=== PATIENT | female | born 1975 | race Caucasian/White ===

== ENCOUNTER → 2018-10-11 18:35 | Outpatient (CLI) | payer MEDICAID, SELFPAY ==
[2018-10-11 19:55] LABS: Anion Gap 10.3 mEq/L (5-15); Blood Urea Nitrogen 13 mg/dL (7-18); Calcium 8.2 mg/dL (8.5-10.1); Carbon Dioxide 31 mmol/L (21.0-32.0); Chloride 105 mmol/L (98-107); Creatinine,Serum 0.93 mg/dL (0.55-1.02); Estimated Glomerular Filt Rate 65 ml/min (>60); GFR (African American) 79 ML/MIN (>60); Glucose 89 mg/dL (74-106); Potassium 4.3 mmoL/L (3.5-5.1); Sodium 142 mmol/L (136-145)
[2018-10-11 20:18] LABS: Carbamazepine (Tegretol) 16.1 ug/ml (4.0-12.0)
== END ==
PROVIDERS: Visit Provider Emergency Medicine
DX: F32.9 Major depressive disorder, single episode, unspecified (principal); I10 Essential (primary) hypertension
CPT/HCPCS: 80048; 80156

== ENCOUNTER 2021-10-31 13:34 | Emergency (ER) | payer MEDICAID, SELFPAY ==
[2021-10-31 14:15] VITALS: BP 131/97; PULSE 76; RESP 18; TEMP 36.8; O2SAT 99; BMI 22.6
[2021-10-31 14:59] VITALS: BP 131/97; PULSE 76; RESP 18; TEMP 36.8; O2SAT 99
--- NOTE | 2021-10-31 15:03 | HMH.EDUTC ---
[facility] [place] Disposition Clinical Impression: Tonsillitis Disposition: Home, Self-Care Condition on Discharge: Good Instructions: DI for Pharyngitis/Tonsillopharyngitis -- Adult Additional Instructions: Strep negative. You have been tested for COVID19. Please isolate yourself as if you are positive until test results return. Referrals: Nathaly Waters [Primary Care Provider] - Time of Disposition: 15:15 Medical Decision Making - Jeff Inquiry Pt receiving controlled substance: No Vital Signs: 10/31/21 14:15 10/31/21 14:59 Temperature 98.2 F 98.2 F Temperature Source Oral Pulse Rate 76 Pulse Rate [Left Brachial] 76 Respiratory Rate 18 18 Blood Pressure 131/97 H Blood Pressure [Left Arm] 131/97 H Blood Pressure Mean [Left Arm] 108 Blood Pressure Source [Left Arm] Automatic Cuff Blood Pressure Position [Left Arm] Sitting 02 Sat by Pulse Oximetry 99 Oxygen Delivery Method Room Air - Lab Data Lab results reviewed: Yes: I reviewed the patient's lab results. Lab Results 10/31/21 14:20: Group A Strep Rapid Negative Orders (Tests/Meds): ORDERS Category Date Time Status Covid-19 Nasal PCR ([facility]) Routine Lab 10/31/21 15:07 Ordered Strep Screen Confirmation Stat Micro 10/31/21 14:20 Received [facility] [place] HPI - General Stated complaint: sore throat, h/a Time Seen by Provider: 10/31/21 15:03 Mode of Arrival: Ambulatory Source of Information: Patient Limitations: No Limitations Description of Symptoms (Recalled from Triage Doc. by RN): PATIENT C/O PROBLEMS WITH SWALLOWING, NECK SORENESS, AND MIGRAINE X 3 DAYS HEENT Symptoms (Recalled from RN notes): Yes Resp Symptoms (Recalled from RN notes): No Skin Symptoms (Recalled from RN notes): No MS Symptoms (Recalled from RN notes): No Functional Status (Recalled from RN notes): WNL - History of Present Illness Provider Complaint: Migraine X 3 days. No fever. Sore throat started last night. Hurts to swallow. Hurts to touch. Some shortness of breath when she lies flat. H/O COPD. No vomiting. Had diarrhea earlier in the week, now resolved. Onset (ago): day(s) (3) Location: head Relieving factors: none Exacerbating factors: none Associated symptoms: cough, weakness Treatments prior to arrival: NSAID - Related Data Home Medications Medication Instructions Recorded Confirmed albuterol sulfate 90 mcg/actuation 2 puff INHALATION Q6H PRN 10/11/18 07/06/21 aerosol inhaler atorvastatin 40 mg tablet 40 mg PO QHS 10/11/18 07/06/21 clonidine HCl 0.2 mg tablet 0.2 mg PO BID 10/11/18 07/06/21 diclofenac sodium 1 % topical gel 2 g TOPICAL QID 10/11/18 07/06/21 dicyclomine 20 mg tablet 10 mg PO QID tab 10/11/18 07/06/21 epinephrine 0.3 mg/0.3 mL 0.3 mg IM Q10-15M PRN 10/11/18 07/06/21 injection, auto-injector furosemide 20 mg tablet 20 mg PO DAILY 10/11/18 07/06/21 gabapentin 800 mg tablet 800 mg PO TID 10/11/18 07/06/21 hydrocodone 10 mg-acetaminophen 1 tab PO Q6H PRN 10/11/18 07/06/21 325 mg tablet ipratropium 0.5 mg-albuterol 3 mg 3 ml INHALATION Q12H ml 10/11/18 07/06/21 (2.5 mg base)/3 mL nebulization soln levothyroxine 100 mcg capsule 100 mcg PO DAILY 10/11/18 07/06/21 levothyroxine 88 mcg capsule 88 mcg PO DAILY 10/11/18 07/06/21 lubiprostone 24 mcg capsule 24 mcg PO BID 10/11/18 07/06/21 omeprazole 20 mg capsule,delayed 40 mg PO DAILY cap 10/11/18 07/06/21 release polyethylene glycol 3350 17 gram 17 g PO DAILY 10/11/18 07/06/21 oral powder packet umeclidinium 62.5 mcg/actuation 1 inh INHALATION DAILY 10/11/18 07/06/21 blister powder for inhalation verapamil 80 mg tablet 80 mg PO TID 10/11/18 07/06/21 warfarin 5 mg tablet 5 mg PO DAILY 10/11/18 07/06/21 carbamazepine 200 mg tablet 400 mg PO BID tab 10/17/18 07/06/21 Previous Rx's Medication Instructions Recorded alprazolam 1 mg tablet 1 mg PO BID PRN #60 tab 10/01/21 trazodone 100 mg tablet 100 mg PO .COMPLEX PRN #60 tab 10/01/21 vilazodone 40 mg tablet 40 mg PO
[2021-10-31 15:09] LABS: Strep Scrn Group A (Rapid) Negative (Negative)
== END 2021-10-31 15:39 | disposition home or self-care (01) ==
PROVIDERS: Emergency Provider Physician Assistant; PCP Family Medicine
DX: J03.90 Acute tonsillitis, unspecified (principal); Z72.0 Tobacco use; R07.0 Pain in throat; R68.83 Chills (without fever); R06.02 Shortness of breath; J44.9 Chronic obstructive pulmonary disease, unspecified; R05.9 Cough, unspecified; R53.1 Weakness; F41.9 Anxiety disorder, unspecified; Z86.73 Personal history of transient ischemic attack (TIA), and cerebral infarction without residual deficits; F32.A Depression, unspecified; K21.9 Gastro-esophageal reflux disease without esophagitis; R56.9 Unspecified convulsions; E03.9 Hypothyroidism, unspecified; M79.10 Myalgia, unspecified site; G43.909 Migraine, unspecified, not intractable, without status migrainosus
CPT/HCPCS: 87430; 99212; C9803; G0463; U0003; U0005

== ENCOUNTER → 2022-12-08 21:20 | Outpatient (CLI) | payer MEDICAID, SELFPAY ==
[2022-12-08 18:42] LABS: Amphetamine/Metha Screen,Urine Negative ng/ml (<1000); Barbiturates Screen,Urine Negative ng/ml (<200)
[2022-12-08 18:43] LABS: Benzodiazepines Screen,Urine Positive ng/ml (<200); Cannabinoid Screen,Urine Positive ng/ml (<50)
[2022-12-08 18:45] LABS: Cocaine Screen,Urine Negative ng/ml (<300); Methadone Screen,Urine Negative ng/ml (<300)
[2022-12-08 18:46] LABS: Opiate Screen,Urine Negative ng/ml (<300)
[2022-12-08 18:47] LABS: Phencyclidine Screen,Urine Negative ng/ml (<25)
== END ==
PROVIDERS: PCP Family Medicine; Visit Provider Nurse Practitioner Psychiatric/Mental Health
DX: F15.20 Other stimulant dependence, uncomplicated (principal); F41.9 Anxiety disorder, unspecified; Z79.899 Other long term (current) drug therapy
CPT/HCPCS: 80305

== ENCOUNTER 2023-03-29 15:39 | Emergency (ER) | payer MEDICAID, SELFPAY ==
[2023-03-29 15:41] VITALS: BP 115/72; PULSE 86; RESP 19; TEMP 36.8; O2SAT 99; BMI 20.3
--- NOTE | 2023-03-29 15:54 | CT_ITS ---
PROCEDURE INFORMATION: Exam: CT Abdomen And Pelvis With Contrast Exam date and time: 03/29/2023 4:54 PM Age: 47 years old Clinical indication: Abdominal pain; Additional info: Lower abd pain vag bld; H/o partial hysterectomy TECHNIQUE: Imaging protocol: Computed tomography of the abdomen and pelvis with contrast. Radiation optimization: All CT scans at this facility use at least one of these dose optimization techniques: automated exposure control; mA and/or kV adjustment per patient size (includes targeted exams where dose is matched to clinical indication); or iterative reconstruction. Contrast material: ISOVUE; Contrast volume: 75 ml; Contrast route: IV; REPORTING DATA: Count of CT and Cardiac NM exams in prior 12 months: This patient has received 0 known CTs and 0 known cardiac nuclear medicine studies in the 12 months prior to the current study. COMPARISON: No relevant prior studies available. FINDINGS: Tubes, catheters and devices: None noted. Lungs: Lung bases appear clear. Heart: No significant coronary calcifications. No cardiomegaly. No significant pericardial effusion. Liver: Right lobe hemangioma. No mass. Gallbladder and bile ducts: Normal. No calcified stones. No ductal dilation. Pancreas: Normal. No ductal dilation. Spleen: Normal. No splenomegaly. Adrenal glands: Normal. No mass. Kidneys and ureters: Normal. No hydronephrosis. Stomach and bowel: Unremarkable. No obstruction. No mucosal thickening. Appendix: No evidence of appendicitis. Intraperitoneal space: Unremarkable. No free air. No significant fluid collection. Retroperitoneal space: No significant retroperitoneal inflammatory changes are noted. Vasculature: IVC filter in place. Consider plan for retrieval. No abdominal aortic aneurysm. Lymph nodes: Unremarkable. No enlarged lymph nodes. Urinary bladder: Unremarkable as visualized. Reproductive: Hysterectomy. Bones/joints: Unremarkable. No acute fracture. Soft tissues: Unremarkable. IMPRESSION: 1. IVC filter in place. Consider plan for retrieval. 2. Hysterectomy. COMMENTS: For patients with an IVC filter, recommend assessment for a management plan for the patient's IVC filter. If there is no established management plan, recommend referral to an interventional clinician on a nonemergent basis for evaluation.
--- NOTE | 2023-03-29 15:55 | HMH.EDGENADL ---
Discharge Plan Disposition Patient Disposition: Home, Self-Care Prescriptions Prescriptions: No Action albuterol sulfate 90 mcg/actuation HFA aerosol inhaler 2 puff INHALATION Q6H PRN ipratropium-albuterol 0.5 mg-3 mg(2.5 mg base)/3 mL solution for nebulization 3 ml INHALATION Q12H atorvastatin 40 mg tablet 40 mg PO QHS clonidine HCl 0.2 mg tablet 0.2 mg PO BID diclofenac sodium 1 % gel 2 g TOPICAL QID dicyclomine 20 mg tablet 10 mg PO QID epinephrine [EpiPen] 0.3 mg/0.3 mL auto-injector 0.3 mg IM Q10-15M PRN furosemide 20 mg tablet 20 mg PO DAILY gabapentin 800 mg tablet 800 mg PO TID Incruse Ellipta 62.5 mcg/actuation blister with device 1 inh INHALATION DAILY levothyroxine 88 mcg capsule 88 mcg PO DAILY levothyroxine 100 mcg capsule 100 mcg PO DAILY Rx Instructions: take m,w,f, and sun lubiprostone 24 mcg capsule 24 mcg PO BID omeprazole 20 mg capsule,delayed release(DR/EC) 40 mg PO DAILY polyethylene glycol 3350 17 gram powder in packet 17 g PO DAILY verapamil 80 mg tablet 80 mg PO TID warfarin 5 mg tablet 5 mg PO DAILY hydrocodone-acetaminophen [[place]] 10-325 mg tablet 1 tab PO Q6H PRN alprazolam [Xanax] 1 mg tablet 1 mg PO BID PRN (Reason: anxiety) Qty: 60 1RF benztropine 1 mg tablet 1 mg PO QHS Qty: 30 1RF lamotrigine [Lamictal] 100 mg tablet 100 mg PO BID Qty: 60 1RF quetiapine [Seroquel] 400 mg tablet 400 mg PO QHS Qty: 90 1RF trazodone 100 mg tablet 100 mg PO .COMPLEX PRN (Reason: sleep) Qty: 60 0RF Rx Instructions: 100 mg PO take 1-2 tablets at bedtime PRN; vilazodone [Viibryd] 40 mg tablet 40 mg PO DAILY Qty: 30 1RF Rx Instructions: must administer with a meal/food carbamazepine 200 mg tablet 400 mg PO BID Referrals Follow up/Referrals: Nathaly Patel MD [Primary Care Provider] - See instructions Activity Restrictions/Add. Instructions Additional Instructions/Restrictions: Her symptoms are consistent with pelvic organ prolapse. Please follow-up with the [facility] [employer] doctor that you have been referred to to discuss nonsurgical and surgical management and options. Also follow-up with your primary care doctor to further discuss your subtherapeutic INR and chronic anticoagulation. Clinical Impressions Clinical Impression: Prolapse of female pelvic organs, Subtherapeutic international normalized ratio (INR) Instructions Patient Instructions: DI for Acute Abdominal Pain Discharge ED Provider: Alesia Doyle General Adult HPI General Chief complaint: Abdominal Pain Stated complaint: abdonimal pain Time Seen by Provider: 03/29/23 15:43 History of Present Illness HPI narrative: Patient is a 47-year-old female with a history of a stroke chronically anticoagulated on Coumadin also with a history of partial hysterectomy only still having her right ovary presenting today with lower abdominal discomfort significant pressure into her vagina as well as some vaginal bleeding. Denies any significant bleeding states that the majority of her discomfort is when she stands up or when she exerts herself as she feels significant pressure in her vaginal area itself. She has no history of bladder prolapse or cervical prolapse. However she states she has mid abdominal pain as well. No other symptoms including diarrhea constipation etc. Or chills. Related Data Home Medications Medication Instructions Recorded Confirmed albuterol sulfate 90 mcg/actuation 2 puff inhalation Q6H PRN 10/11/18 01/06/23 aerosol inhaler atorvastatin 40 mg tablet 40 mg PO QHS 10/11/18 01/06/23 clonidine HCl 0.2 mg tablet 0.2 mg PO BID 10/11/18 01/06/23 diclofenac sodium 1 % topical gel 2 g topical QID 10/11/18 01/06/23 dicyclomine 20 mg tablet 10 mg PO QID 10/11/18 01/06/23 epinephrine 0.3 mg/0.3 mL 0.3 mg IM Q10-15M PRN 10/11/18 01/06/23 injection, auto-in
[2023-03-29 16:25] LABS: Basophils % 0.4 % (0.1-2.0); Eosinophils # 0.1 K/mm3 (0.0-0.4); Eosinophils % 1.3 % (0.1-12.0); Hematocrit 37.1 % (37.0-47.0); Hemoglobin 12.2 g/dL (12.2-16.2); Lymphocytes # 1.7 K/mm3 (0.7-4.5); Mean Corpuscular HGB Conc 32.9 g/dL (31.8-35.4); Mean Corpuscular Hemoglobin 31.6 pg (27.0-31.2); Mean Corpuscular Volume 96.1 fl (81-99); Monocytes # 0.2 K/mm3 (0.1-1.0); Monocytes % 3.7 % (1.7-9.3); Neutrophils # 2.6 K/mm3 (1.8-7.8); Neutrophils % 57.6 % (37.0-80.0); Platelet Count 310 K/mm3 (142-424); Red Blood Count 3.86 M/mm3 (4.20-5.40); Red Cell Distribution Width 12.8 % (11.5-17.5); White Blood Count 4.5 K/mm3 (4.8-10.8)
[2023-03-29 16:28] LABS: Chloride 101 mmol/L (98-107); Potassium 3.7 mmoL/L (3.5-5.1); Sodium 138 mmol/L (136-145)
[2023-03-29 16:31] LABS: Alanine Aminotransferase 27 U/L (12-78); Albumin Level 4.4 g/dl (3.5-5.0); Albumin/Globulin Ratio 1.4 (1.1-1.8); Alkaline Phosphatase 67 U/L (38-126); Anion Gap 9.7 mEq/L (5-15); Aspartate Amino Transferase 40 U/L (14-36); Bilirubin,Total 0.4 mg/dl (0.2-1.3); Blood Urea Nitrogen 9 mg/dl (7-17); Calcium 9.1 mg/dl (8.4-10.2); Carbon Dioxide 31 mmol/L (22.0-30.0); Creatinine Clearance Estimated 70 mL/min (50-200); Estimated Glomerular Filt Rate 67 ml/min (>60); GFR (African American) 81 ML/MIN (>60); Globulin 3.1 g/dL (1.3-3.2); Glucose 116 mg/dl (74-100); INR 1.52 (0.9-1.1); Lipase 23 U/L (23-300); Total Protein,Serum 7.5 g/dl (6.3-8.2)
[2023-03-29 18:30] VITALS: BP 121/82; PULSE 82; RESP 20; TEMP 36.8; O2SAT 97
== END 2023-03-29 18:31 | disposition home or self-care (01) ==
PROVIDERS: Emergency Provider Student in an Organized Health Care Education/Training Program; PCP Family Medicine
DX: N81.9 Female genital prolapse, unspecified (principal); R10.30 Lower abdominal pain, unspecified; N93.9 Abnormal uterine and vaginal bleeding, unspecified; F17.210 Nicotine dependence, cigarettes, uncomplicated; Z86.73 Personal history of transient ischemic attack (TIA), and cerebral infarction without residual deficits; Z79.01 Long term (current) use of anticoagulants
CPT/HCPCS: 74177; 80053; 83690; 85025; 85610; 96361; 96374; 96375; 99285; J2405; Q9967